=== PATIENT | female | born 1960 | race Caucasian/White ===

== ENCOUNTER 2021-03-01 11:44 | Emergency (ER) | payer OTHER, SELFPAY ==
--- NOTE | ~2021-03-01 | XR_ITS ---
EXAMINATION: XR chest 2V 03/01/2021 12:10 INDICATION: Midsternal chest pain, shortness of breath and anxiety PROCEDURE: 2 view chest COMPARISON: 08/29/2006 FINDINGS: The lungs are clear. The cardiomediastinal silhouette is within normal limits. There are no pleural effusions. There is no pneumothorax suspected. IMPRESSION: 1: NO ACUTE CARDIOPULMONARY DISEASE. Reviewed, dictated and finalized at location A.
--- NOTE | 2021-03-01 11:46 | ECG_ITS ---
Measurements Intervals [place] Rate: 115 P: 12 [place]: 152 QRS: -31 QRSD: 94 T: 12 QT: 318 QTc: 440 Interpretive Statements SINUS TACHYCARDIA LEFT AXIS DEVIATION INCOMPLETE RIGHT BUNDLE BRANCH BLOCK BORDERLINE R WAVE PROGRESSION, ANTERIOR LEADS BASELINE WANDER- I, II ABNORMAL ECG Electronically Signed On 03-01-2021 12:05:19 CDT by Andrew Young D.O.
[2021-03-01 11:55] VITALS: BP 174/103; PULSE 113; RESP 20; TEMP 36.7; O2SAT 100
[2021-03-01 12:10] LABS: Basophils Percent Auto 0.5 % (0.2-1.2); Eosinophils Absolute Auto 0.3 K/mm3 (0-0.3); Hematocrit 48.3 % (37.0-47.0); Hemoglobin 15.6 g/dL (12.0-15.0); Immature Granulocyte Absolute 0.02 K/mm3 (0.00-0.031); Immature Granulocyte Percent A 0.2 % (0-0.5); Lymphocytes Absolute Auto 2.44 K/mm3 (0.9-3.2); Lymphocytes Percent Auto 29.3 % (18.3-44.2); Mean Corpuscular HGB Conc 32.3 g/dl (32-36); Mean Corpuscular Hemoglobin 28.6 pg (26-34); Mean Corpuscular Volume 88.6 fl (80-100); Mean Platelet Volume 10.3 fl (7.4-10.4); Monocytes Absolute Auto 0.5 K/mm3 (0.1-0.6); Monocytes Percent Auto 5.8 % (2.6-8.5); Neutrophils Percent Auto 60.2 % (45.5-73.1); Platelet Count Result 355 k/mm3 (150-375); Red Blood Count 5.45 M/mm3 (4.2-5.4); Red Cell Distribution Width 12.7 % (11.5-14.5); White Blood Count 8.3 K/mm3 (4.5-10.0)
[2021-03-01 12:19] LABS: INR 0.8
[2021-03-01 12:20] LABS: Partial Thromboplastin Time 26.9 SECONDS (22.3-36.8)
[2021-03-01 12:24] LABS: Anion Gap 12 mmol/L (8-16); Blood Urea Nitrogen 16 mg/dL (7-17); Calcium 10.2 mg/dL (8.4-10.2); Carbon Dioxide 25 mmol/L (22-30); Chloride 103 mmol/L (98-107); Estimated CRCL calculation 74 ml/min; Estimated Glomerular Filt Rate > 60; Glucose 105 mg/dL (65-110); Potassium 4.6 mmol/L (3.4-5.0); Sodium 140 mmol/L (137-145)
[2021-03-01 12:36] LABS: Troponin I < 0.012 ng/mL (0.000-0.034)
--- NOTE | 2021-03-01 13:28 | ED.ANXIETY ---
HPI - Anxiety General Chief Complaint: Anxiety Stated Complaint: CP/back pain Time Seen by Provider: 03/01/21 12:59 Source: patient Mode of arrival: ambulatory Limitations: no limitations History of Present Illness HPI narrative: This is a 60 year old female that presents to the ER for worsening anxiety over the last week. Reports increased worry and anxiety. She has taken her Xanax with some relief. Reports she has intermittent chest pains that feel like a dull ache. The pain is better when she doesn't think about it. It is not exertional. She thinks maybe she is short of breath sometimes when she thinks about the possibility of having covid. Reports being in the ER currently is making her anxious. Is concerned if her tests have come back okay so far. Denies any current chest pain. Has no thoughts of harming herself or anyone else. Denies fever, or lower extremity edema. Related Data Home Medications Medication Instructions Recorded Confirmed cholecalciferol (vitamin D3) 25 1,000 unit PO DAILY 09/14/19 01/24/20 mcg (1,000 unit) capsule multivitamin 1 tablet PO DAILY 09/14/19 01/24/20 cetirizine 10 mg capsule 10 mg PO DAILY 01/24/20 01/24/20 Allergies Allergy/AdvReac Type Severity Reaction Status Date / Time ciprofloxacin Allergy Unknown Bradycardia Verified 03/01/21 12:45 nitrofurantoin Allergy Unknown Unknown Verified 03/01/21 12:45 Review of Systems Review of Systems: CONSTITUTIONAL: Denies fever CARDIOVASCULAR: Reports chest pain. Denies edema. RESPIRATORY: Reports dyspnea. All systems reviewed & are unremarkable except as noted in HPI and below PMFSH Past Medical History Medical History (Updated 03/01/21 @ 17:08 by Meme Robin PA-C) Anxiety Chicken pox Cholecystectomy planned 2007 Hypothyroidism Mumps Prediabetes Vitamin deficiency Family History Family History (Updated 09/14/19 @ 09:55 by Page Rey CMA) Mother Carcinoma of colon Circulatory disorder Social History Social History Smoking status: Never smoker Alcohol intake: never Exam Narrative: GENERAL: Well-appearing, well-nourished HEAD: Normocephalic, atraumatic. EYES: EOMI. ENT: Nares clear, no rhinorrhea or epistaxis. Mucous membranes moist. Oropharynx without tonsillar hypertrophy exudate or other lesions. Bilateral TMs pearly lara non-bulging NECK: Supple. No adenopathy or masses. CHEST: Clear to auscultation. No respiratory distress. No wheezes rales or rhonchi HEART: Regular rate and rhythm. No murmur heard. Normal peripheral pulses. EXTREMITIES: Normal range of motion. No edema. SKIN: Warm, dry, no rash. NEURO: No focal deficits. Alert and oriented x3. PSYCH: Anxious Course Consultations Consultation #1: Spoke with Dr. Alvarado about patient and workup. Will give patient prescription for a couple pills of her anxiety medication and she is to follow up in clinic for further evaluation and management. Date: 03/01/21 Time: 17:07 Vital Signs Vital signs: Vital Signs Temperature 98.1 F 03/01/21 11:55 Pulse Rate 113 H 03/01/21 11:55 Respiratory Rate 20 03/01/21 11:55 Blood Pressure 174/103 H 03/01/21 11:55 Pulse Oximetry 100 03/01/21 11:55 Temperature 98.1 F 03/01/21 11:55 Pulse Rate 83 03/01/21 14:47 Respiratory Rate 16 03/01/21 14:47 Blood Pressure 140/106 H 03/01/21 14:47 Pulse Oximetry 99 03/01/21 14:47 MDM - Anxiety MDM Narrative Medical decision making narrative: Patient presents to the emergency department for worsening anxiety over the last week. Associated with chest pain. She has no thoughts of harming herself or anyone else. She is afebrile and nontoxic-appearing. Her vitals are stable. She was tachycardic and hypertensive upon arrival, this was improved with dose of Ativan. She also had improvement in her symptoms. CBC and metabolic panel without concerning findings. EKG without acute ST changes. Baseline and 3-hour troponin are negative. Free T4
--- NOTE | 2021-03-01 13:42 | PC.NURSE ---
lab, nickie, tsh
[2021-03-01] MEDS: LORazepam INJ (*CRX) 2 MG/ML VIAL 0.5 MG IV PUSH (13:46)
[2021-03-01 14:32] LABS: Thyroid Stimulating Hormone Reflex 0.464 uIU/mL (0.465-4.68)
[2021-03-01 14:47] VITALS: BP 140/106; PULSE 83; RESP 16; O2SAT 99
[2021-03-01 15:31] LABS: Troponin I < 0.012 ng/mL (0.000-0.034)
[2021-03-01 17:06] LABS: Free T4 Free Thyroxine Reflex 1.54 ng/dL (0.78-2.19)
[2021-03-01 17:20] VITALS: BP 140/106; PULSE 82; RESP 20; O2SAT 100
[2021-03-01 18:00] LABS: Total Triiodothyronine (T3) 1.29 NG/ML (0.97-1.69)
== END 2021-03-01 17:21 | disposition home or self-care (01) ==
PROVIDERS: General Practice; Physician Assistant; Emergency Provider Emergency Medicine; PCP Internal Medicine
DX: F41.9 Anxiety disorder, unspecified (principal); R07.9 Chest pain, unspecified; E03.9 Hypothyroidism, unspecified; R73.03 Prediabetes; E56.9 Vitamin deficiency, unspecified; R00.0 Tachycardia, unspecified; I45.10 Unspecified right bundle-branch block
CPT/HCPCS: 36415; 71046; 80048; 84439; 84443; 84480; 84484; 85025; 85610; 85730; 93005; 96374; 99284; J2060

== ENCOUNTER 2021-12-20 19:25 | Emergency (ER) | payer OTHER, SELFPAY ==
--- NOTE | 2021-12-20 19:32 | ED.FEMALEGU ---
HPI - Female Genitourinary General Chief complaint: Urogenital-Female Stated complaint: UTI Time Seen by Provider: 12/20/21 19:32 Source: patient Mode of arrival: ambulatory Limitations: no limitations History of Present Illness HPI Narrative: 61-year-old female presents with complaint of urinary urgency for 2 to 3 weeks. Reports over the past several days she noticed low back pain. States that urinary urgency started after a road trip with her daughter. Had to hold her bladder for long period of time. Denies fever chills. No abdominal pain. No nausea vomiting diarrhea. Patient also reports mild nasal congestion, sinus pressure right ear pain that started today. States that this is weather related. Does take Zyrtec daily. No cough or shortness of breath. All systems reviewed and negative except as noted above. Related Data Home Medications Medication Instructions Recorded Confirmed cholecalciferol (vitamin D3) 25 1,000 unit PO DAILY 09/14/19 12/20/21 mcg (1,000 unit) capsule multivitamin 1 tablet PO DAILY 09/14/19 12/20/21 cetirizine 10 mg capsule 10 mg PO DAILY 01/24/20 12/20/21 Allergies Allergy/AdvReac Type Severity Reaction Status Date / Time ciprofloxacin Allergy Unknown Bradycardia Verified 12/20/21 19:42 nitrofurantoin Allergy Unknown Unknown Verified 12/20/21 19:42 Review of Systems Review of Systems: CONSTITUTIONAL: Denies fever, chills, or sweats. EYES: Denies visual changes, redness, or discharge. ENT: Reports rhinorrhea, congestion. Denies sore throat, or otalgia. CARDIOVASCULAR: Denies chest pain, palpitations, or edema. RESPIRATORY: Denies cough or dyspnea. GASTROINTESTINAL: Denies abdominal pain, nausea, vomiting, or diarrhea. GENITOURINARY: Denies dysuria or hematuria. Reports urgency. SKIN: Denies rash or itching. MUSCULOSKELETAL: Denies back pain, joint pain, or myalgia. NEUROLOGIC: Denies headache, numbness, or weakness. PSYCHIATRIC: Denies anxiety or depression. All other systems reviewed are negative, except as documented in HPI. [facility] Past Medical History Medical History Anxiety Chicken pox Cholecystectomy planned 2007 Hypothyroidism Mumps Prediabetes Vitamin deficiency Family History Family History Mother Carcinoma of colon Circulatory disorder Social History Social History Smoking status: Never smoker Alcohol intake: never Comments At time of signature, agree with nursing past medical, surgical, social and family history. There is no relevant family history pertinent to the presenting complaint. Exam Narrative: GENERAL: This is a well-nourished, well-developed patient, in no apparent distress. HEAD: normocephalic, atraumatic. EYES: PERRL. Sclera clear/white. Vision is grossly intact. EARS: External ears normal, auditory canals clear and without drainage, TMs normal without perforation. Hearing grossly intact. NOSE: External nose normal, clear nasal drainage. No erythema or swelling to nares. No sinus tenderness. THROAT: Mucous membranes moist, posterior pharynx clear. NECK: Neck supple, non-tender without lymphadenopathy, masses or thyromegaly. CARDIOVASCULAR: Regular rate and rhythm without murmurs, gallops, or rubs. RESPIRATORY: Clear to auscultation. Breath sounds equal bilaterally. No wheezes, rales, or rhonchi. SKIN: warm, Dry, intact with no suspicious lesions or rash, good texture and turgor. NEURO: awake, alert, and oriented to person, place and time. There were no obvious focal neurologic abnormalities. EXTREMITIES: Normal range of motion to all extremities. BACK: No CVA tenderness. Course Course Level of Care: Express Care Visit Vital Signs Vital signs: Vital Signs Temperature 37.1 C 12/20/21 19:33 Pulse Rate 104 H 12/20/21 19:33 Respiratory Rate 18 12/20/21 19:33 B
[2021-12-20 19:33] VITALS: BP 154/82; PULSE 104; RESP 18; TEMP 37.1; O2SAT 100
== END 2021-12-20 19:50 | disposition home or self-care (01) ==
PROVIDERS: Emergency Provider Nurse Practitioner Family; PCP Internal Medicine
DX: N39.0 Urinary tract infection, site not specified (principal); J30.2 Other seasonal allergic rhinitis; E03.9 Hypothyroidism, unspecified; R73.03 Prediabetes
CPT/HCPCS: 81003; 87086; 87088; 99213; G0463

== ENCOUNTER 2021-12-23 08:42 | Emergency (ER) | payer OTHER, SELFPAY ==
[2021-12-23 08:49] VITALS: BP 154/113; PULSE 93; RESP 16; TEMP 36.8; O2SAT 99
--- NOTE | 2021-12-23 09:21 | ED.URI ---
HPI - URI/Sore Throat General Chief Complaint: Upper Respiratory Infection Stated Complaint: sore throat/ear pain Time Seen by Provider: 12/23/21 09:21 Source: patient, family, RN notes reviewed and old records reviewed Mode of arrival: ambulatory Limitations: no limitations History of Present Illness HPI Narrative: 61-year-old female presents to the [facility] with complaints of scratchy throat right ear burning, left ear uncomfortable, nasal drainage for 3 days. Patient states that she has tried taking Zyrtec, ibuprofen and Flonase with minimal relief MD elicited complaint: sore throat Related Data Home Medications Medication Instructions Recorded Confirmed cholecalciferol (vitamin D3) 25 1,000 unit PO DAILY 09/14/19 12/23/21 mcg (1,000 unit) capsule multivitamin 1 tablet PO DAILY 09/14/19 12/23/21 cetirizine 10 mg capsule 10 mg PO DAILY 01/24/20 12/23/21 Allergies Allergy/AdvReac Type Severity Reaction Status Date / Time ciprofloxacin Allergy Unknown Bradycardia Verified 12/23/21 09:35 nitrofurantoin Allergy Unknown Unknown Verified 12/23/21 09:35 Review of Systems Review of Systems: All systems reviewed & are unremarkable except as noted in HPI and below Constitutional: Constitutional: Reports no additional constitutional complaints, Denies chills, Denies fever(s) and Denies headache(s) Eyes: Eyes: Reports no additional eye complaints ENT: Reports as per HPI, Denies vertigo, Denies dizziness, Denies headache(s), Reports nasal congestion and Reports sore throat Comments: Burning ears bilateral, nasal drainage postnasal drip Cardiovascular: Cardiovascular: Reports no additional cardiovascular complaints, Denies chest pain, Denies syncope, Denies rapid heart rate and Denies dyspnea Respiratory: Respiratory: Reports no additional respiratory complaints, Denies cough, Denies dyspnea and Denies wheezing Gastrointestinal: Gastrointestinal: Reports no additional gastrointestinal complaints, Denies abdominal pain, Denies diarrhea, Denies nausea and Denies vomiting Musculoskeletal: Musculoskeletal: Reports no additional musculoskeletal complaints and Denies numbness Integumentary/Breasts: Skin/Breast: Reports system reviewed and no additional complaints, except as docu Neurologic: Reports system reviewed and no additional complaints, except as documented, Denies vertigo, Denies dizziness, Denies syncope, Denies headache(s), Denies focal weakness and Denies numbness Psychiatric: Psychiatric: Reports no additional psychiatric complaints Allergic/Immunologic: Allergic/Immunologic: Reports no additional allergic/immunologic complaints and Denies wheezing PMFSH Past Medical History Medical History Anxiety Chicken pox Cholecystectomy planned 2007 Hypothyroidism Mumps Prediabetes Vitamin deficiency Family History Family History Mother Carcinoma of colon Circulatory disorder Social History Social History Smoking status: Never smoker Alcohol intake: never Comments At the time of my signature, I reviewed and agree with the nursing past medical, surgical, social, and family history. There is no relevant family history pertinent to the patient complaint. Exam Const: General: cooperative, healthy appearing, no acute distress, well developed and alert Nutritional Appearance: well nourished and obese Orientation/consciousness: patient oriented x3 Limitations: no limitations HENMT: Head: normal to inspection Ears: external ears normal, EAC's normal and TM abnormal with fluid behind the TM bilateral; not erythematous and with no loss of landmarks Mouth: Yes lip normal Throat: uvula midline, posterior oropharynx abnormal cobblestoning; no erythema and no exudates, postnasal drainage and no uvular edema Eyes: Conjunctivae: conjunctivae normal Pupils:
== END 2021-12-23 09:40 | disposition home or self-care (01) ==
PROVIDERS: Emergency Provider Nurse Practitioner; PCP Internal Medicine
DX: H69.93 Unspecified Eustachian tube disorder, bilateral (principal); J30.9 Allergic rhinitis, unspecified; R09.82 Postnasal drip; E03.9 Hypothyroidism, unspecified; R73.03 Prediabetes
CPT/HCPCS: 99211; G0463

== ENCOUNTER 2021-12-27 18:44 | Emergency (ER) | payer OTHER, SELFPAY ==
--- NOTE | ~2021-12-27 | XR_ITS ---
XR abdomen/kub 1V 12/27/2021 19:29 INDICATION: Intermittent abdomen pain TECHNIQUE: KUB COMPARISON: None FINDINGS: Bowel gas pattern is normal. There are cholecystectomy clips. There is no evidence of free air, mass, organomegaly, ascites or obstruction. No abnormal calculi are seen. The bones appear int act. Moderate lumbar spondylosis with levocurvature of the lumbar spine. IMPRESSION: 1: No acute abdominal abnormality identified. Reviewed, dictated and finalized at location A.
[2021-12-27 18:52] VITALS: BP 142/88; PULSE 102; RESP 18; TEMP 36.9; O2SAT 99
--- NOTE | 2021-12-27 19:06 | ED.FEMALEGU ---
HPI - Female Genitourinary General Chief complaint: Urogenital-Female Stated complaint: uti Time Seen by Provider: 12/27/21 19:06 Source: patient and RN notes reviewed Mode of arrival: ambulatory Limitations: no limitations History of Present Illness HPI Narrative: 61-year-old female presented for complaint of urinary frequency and occasional left flank pain. She has been drinking more water than usual. She states she was diagnosed and treated for UTI few weeks ago, she completed the course of the antibiotics but she is concerned the UTI has returned. She is leaving for vacation and wants to make sure that she has a UTI. Denies nausea, vomiting, diarrhea, hematuria, constipation, fevers or chills. Related Data Home Medications Medication Instructions Recorded Confirmed cholecalciferol (vitamin D3) 25 1,000 unit PO DAILY 09/14/19 12/23/21 mcg (1,000 unit) capsule multivitamin 1 tablet PO DAILY 09/14/19 12/23/21 cetirizine 10 mg capsule (Zyrtec) 10 mg PO DAILY 01/24/20 12/23/21 Allergies Allergy/AdvReac Type Severity Reaction Status Date / Time ciprofloxacin Allergy Unknown Bradycardia Verified 12/23/21 09:35 nitrofurantoin Allergy Unknown Unknown Verified 12/23/21 09:35 Review of Systems Review of Systems: CONSTITUTIONAL: Denies body aches, fever, chills, or sweats. CARDIOVASCULAR: Denies chest pain, palpitations, or edema. RESPIRATORY: Denies cough or dyspnea. GASTROINTESTINAL: Denies abdominal pain, nausea, vomiting, or diarrhea. GENITOURINARY: Reports frequency SKIN: Denies rash, itching, or wounds. MUSCULOSKELETAL: Denies back pain or myalgia. [facility] Past Medical History Medical History Anxiety Chicken pox Cholecystectomy planned 2007 Hypothyroidism Mumps Prediabetes Vitamin deficiency Family History Family History Mother Carcinoma of colon Circulatory disorder Social History Social History Smoking status: Never smoker Alcohol intake: never Comments At time of signature, I have reviewed and agree with nursing past medical, surgical, social and family history unless otherwise noted. Please see nursing chart for further information. There is no relevant family history pertinent to the presenting complaint Exam Narrative: GENERAL: Well-appearing HEAD: Normocephalic EYES: EOMI. . ENT: Mucous membranes pink and moist. NECK: Normal AROM. Supple. CHEST: No respiratory distress. Clear to auscultation. HEART: Regular rate and rhythm. ABDOMEN: Soft, nontender, nondistended, normal active bowel sounds. No CVA tenderness MUSCULOSKELETAL: No bony tenderness. SKIN: Warm, dry, no rash. NEURO: No focal deficits. Alert and oriented x3. Gait steady. PSYCH: Normal affect. Anxious Course Course Emergency Course: Patient is aware of diagnosis, understands and agrees to treatment plan. Anticipatory guidance given. Patient agrees to follow-up as directed and is aware of reasons to seek care at the emergency department. Portions of this record may have been created with voice recognition software Level of Care: Express Care Visit Vital Signs Vital signs: Vital Signs Temperature 98.4 F 12/27/21 18:52 Pulse Rate 102 H 12/27/21 18:52 Respiratory Rate 18 12/27/21 18:52 Blood Pressure 142/88 H 12/27/21 18:52 Pulse Oximetry 99 12/27/21 18:52 Oxygen Delivery Room Air 12/27/21 18:52 Temperature 98.4 F 12/27/21 18:52 Pulse Rate 102 H 12/27/21 18:52 Respiratory Rate 18 12/27/21 18:52 Blood Pressure 142/88 H 12/27/21 18:52 Pulse Oximetry 99 12/27/21 18:52 Oxygen Delivery Room Air 12/27/21 18:52 Reviewed MDM - Female Genitourinary MDM Narrative Medical decision making narrative: Urine result reviewed with patient, trace blood. Patient became diaphoretic and anxious when told
== END 2021-12-27 19:42 | disposition home or self-care (01) ==
PROVIDERS: Emergency Provider Nurse Practitioner Family; PCP Internal Medicine
DX: R35.0 Frequency of micturition (principal); R31.29 Other microscopic hematuria; E03.9 Hypothyroidism, unspecified; R73.03 Prediabetes; E55.9 Vitamin D deficiency, unspecified
CPT/HCPCS: 74018; 81003; 99213; G0463

== ENCOUNTER 2022-04-09 15:11 | Outpatient (CLI) | payer OTHER, SELFPAY ==
[2022-04-09 20:33] LABS: Anion Gap 10 mmol/L (8-16); Blood Urea Nitrogen 14 mg/dL (7-17); Carbon Dioxide 29 mmol/L (22-30); Chloride 102 mmol/L (98-107); Estimated Glomerular Filt Rate > 60; Glucose 113 mg/dL (65-110); Magnesium 2.3 mg/dL (1.6-2.3); Potassium 5.1 mmol/L (3.4-5.0); Sodium 141 mmol/L (137-145)
== END 2022-04-09 15:12 | disposition home or self-care (01) ==
PROVIDERS: PCP Internal Medicine; Visit Provider Clinical Nurse Specialist
DX: E87.5 Hyperkalemia (principal)
CPT/HCPCS: 36415; 80048; 83735

== ENCOUNTER 2024-09-08 00:29 | Day surgery (SDC) | payer OTHER, SELFPAY ==
[2024-08-25 09:08] VITALS: BMI 31.1
--- OUTSIDE RECORDS SUMMARY | 2024-09-08 00:31 | XMS_ITS | Patient Health Summary ---
Author Organization [facility] Address [address] [place] [address] Care Team Providers Care Pier Master Assistant Name Role Phone Flo Alvarado DO Primary Care Provider Note from [facility],non-owned Affiliates and Associated Physician Practices is amultiple site organization consisting of ambulatory clinics and hospital sitesin [place], [place], [place] and [place]. This disclosure is being madepursuant to the Care Everywhere program and may not contain all information available regarding this patient. Last updated 18.[facility] Allergies * Ciprofloxacin(Other) Medications * Be aware that medications may not be up to date on this document. Alwaysverify current medications with the patient. * levothyroxine (SYNTHROID) 150 MCG tablet Take 150 mcg by mouth daily before breakfast * VITAMIN D, ERGOCALCIFEROL, PO * Cetirizine HCl (ZYRTEC ALLERGY PO) * fluticasone propionate (FLONASE ALLERGY RELIEF) 50 MCG/ACT nasal spray(Started 12/17/2017) [place] 2 sprays into each nostril once daily Reasons: Allergic Rhinitis * ALPRAZolam (XANAX) 0.25 MG tablet alprazolam 0.25 mg tablet TAKE 1 TABLET BY MOUTH THREE TIMES A DAY NEEDED FOR ANXIETY * albuterol HFA (PROVENTIL; VENTOLIN; PROAIR) 108 (90 Base) MCG/ACT inhaler (Started 07/11/2021) [place] 2 (two) puffs by mouth every 6 hours as needed for Wheezing or Cough Active Problems Problem Noted Date Diagnosed Date Rupture of peroneal tendon 09/14/2018 Seasonal allergies 09/01/2018 Soft tissue lesion of foot 09/01/2018 Wears glasses 09/01/2018 Social History Tobacco Use Types Packs/Day Years Used Date Smoking Tobacco: Never Smokeless Tobacco: Never Tobacco Cessation:Counseling Given: No Sex and Gender Information Value Date Recorded Sex Assigned at Not on file Gender Identity Not on file Sexual Orientation Not on file Last Filed Vital Signs Vital Sign Reading Time Taken Comments Blood Pressure 150/80 07/11/2021 9:34 AM RECORDING STUDIO SETUP WORKER Pulse 100 07/11/2021 9:34 AM RECORDING STUDIO SETUP WORKER Temperature 37 ??C (98.6 ??F) 07/11/2021 9:34 AM RECORDING STUDIO SETUP WORKER Respiratory Rate 18 07/11/2021 9:34 AM RECORDING STUDIO SETUP WORKER Oxygen Saturation 97% 07/11/2021 9:34 AM RECORDING STUDIO SETUP WORKER Inhaled Oxygen Concentration - - Weight 90.7 kg (200 lb) 07/11/2021 9:34 AM RECORDING STUDIO SETUP WORKER Height 165.1 cm (5' 5 ) 07/11/2021 9:34 AM RECORDING STUDIO SETUP WORKER Body Mass Index 33.28 07/11/2021 9:34 AM RECORDING STUDIO SETUP WORKER Care Teams Pier Master Assistant Relationship Specialty Start Date End Date Flo Alvarado DO PCP - General Internal Medicine 12/17/17
--- OUTSIDE RECORDS SUMMARY | 2024-09-08 00:31 | XMS_ITS | Clinical Summary ---
Author Organization [facility] Address [address] [address] Care Team Providers Care Prospecting Driller Helper Name Role Phone Flo Alvarado DO Primary Care Provider Source Comments [facility],non-owned Affiliates and Associated Physician Practices is amultiple site organization consisting of ambulatory clinics and hospital sitesin [place], [place], [place] and [place]. This disclosure is being madepursuant to the Care Everywhere program and may not contain all information available regarding this patient. Last updated 18.[facility] Allergies Active Allergy Reactions Criticality Noted Date Comments Ciprofloxacin Other 12/17/2017 Anxious Medications * Be aware that medications may not be up to date on this document. Alwaysverify current medications with the patient. Medication Sig Dispensed Refills Start Date End Date Status levothyroxine (SYNTHROID) 150 MCG tablet Take 150 mcg by mouth daily before breakfast Active VITAMIN D, ERGOCALCIFEROL, PO Active Cetirizine HCl (ZYRTEC ALLERGY PO) Activ e fluticasone propionate (FLONASE ALLERGY RELIEF) 50 MCG/ACT nasal sprayIndications:Al lergic Rhinitis [place] 2 sprays into each nostril once daily Reasons: Allergic Rhinitis 1 bottles 12/17/2017 Active ALPRAZolam (XANAX) 0.25 MG tablet alprazolam 0.25 mg tablet TAKE 1 TABLET BY MOUTH THREE TIMES A DAY NEEDED FOR ANXIETY Active albuterol HFA (PROVENTIL; VENTOLIN; PROAIR) 108 (90 Base) MCG/ACT inhaler Inhale 2 (two) puffs by mouth every 6 hours as needed for Wheezing or Cough 1 g 07/11/2021 Active Active Problems Problem Noted Date Diagnosed Date [...] Comments Blood Pressure 150/80 07/11/2021 9:34 AM NURSE ANESTHESIA PROGRAM DIRECTOR Pulse 100 07/11/2021 9:34 AM NURSE ANESTHESIA PROGRAM DIRECTOR Temperature 37 ??C (98.6 ??F) 07/11/2021 9:34 AM NURSE ANESTHESIA PROGRAM DIRECTOR Respiratory Rate 18 07/11/2021 9:34 AM NURSE ANESTHESIA PROGRAM DIRECTOR Oxygen Saturation 97% 07/11/2021 9:34 AM NURSE ANESTHESIA PROGRAM DIRECTOR Inhaled Oxygen Concentration - - Weight 90.7 kg (200 lb) 07/11/2021 9:34 AM NURSE ANESTHESIA PROGRAM DIRECTOR Height 165.1 cm (5' 5 ) 07/11/2021 9:34 AM NURSE ANESTHESIA PROGRAM DIRECTOR Body Mass Index 33.28 07/11/2021 9:34 AM NURSE ANESTHESIA PROGRAM DIRECTOR Plan of Treatment Health Maintenance Due Date Last Done Comments COLOGUARD (AGES 45-75) - COL ON CA SCREENING 1960 COLON MONITORING 1960 COLONOSCOPY - COLON CA SCREENING 1960 CT COLONOGRAPHY - COLON CA SCREENING 1960 Colorectal Cancer Screening 1960 FIT - COLON CA SCREENING 1960 FLEX SIG - COLON CA SCREENING 1960 LIPID TESTING 1960 MAMMOGRAM 1960 PAP SMEAR 1960 HIV SCREENING 1975 HEPATITIS C SCREENING 03/14/1978 DTAP/TDAP/TD VACCINES (1 - Tdap) 1979 PNEUMOCOCCAL VACCINE 50+ (1 of 1 - PCV) 2010 ZOSTER VACCINE (1 of 2) 2010 SCREENING FOR DIABETES 07/11/2021 COVID-19 VACCINE (1 - 2023-2 5 season) 2024 INFLUENZA VACCINE (#1) 2024 , 05/08/2020 DEPRESSION SCREENING 08/04/2024 Respiratory Syncytial Virus (RSV) Vaccine Pt: or over 60 yrs (1 - 1-dose 75+ series) 2035 HEPATITIS B VACCINE Aged Out No longe r eligible based on patient's age to complete this topic HIB VACCINE Aged Out No longer eligi ble based on patient's age to complete this topic HPV VACCINE Aged Out No longer eligi ble based on patient's age to complete this topic MENINGOCOCCAL (Group B) VACCINE Aged Out No longer eligible b ased on patient's age to complete this topic MENINGOCOCCAL VACCINE Aged Out No robson wilbert eligible based on patient's age to complete this topic PNEUMOCOCCAL VACCINE Aged Out No long er eligible based on patient's age to complete this topic Care Teams Prospecting Driller Helper Relationship Specialty Start Date End Date Flo Alvarado DO PCP - General Internal Medicine 12/17/17
--- OUTSIDE RECORDS SUMMARY | 2024-09-08 00:31 | XMS_ITS | Referral Summary ---
Author Organization [facility] Address [address] [place] [address] Care Team Providers Care Avionics Test Technician Name Role Phone Flo Alvarado DO Primary Care Provider Source Comments [facility],non-owned Affiliates and Associated Physician Practices is amultiple site organization consisting of ambulatory clinics and hospital sitesin [place], [place], [place] and [place]. This disclosure is being madepursuant to the Care Everywhere program and may not contain all information available regarding this patient. Last updated 18.[facility] Allergies Active Allergy Reactions Criticality Noted Date [...] RELIEF) 50 MCG/ACT nasal sprayIndications:Al lergic Rhinitis [place] 2 sprays into each nostril once daily [...] Comments Blood Pressure 150/80 07/11/2021 9:34 AM COMMUNICATION CLERK Pulse 100 07/11/2021 9:34 AM COMMUNICATION CLERK Temperature 37 ??C (98.6 ??F) 07/11/2021 9:34 AM COMMUNICATION CLERK Respiratory Rate 18 07/11/2021 9:34 AM COMMUNICATION CLERK Oxygen Saturation 97% 07/11/2021 9:34 AM COMMUNICATION CLERK Inhaled Oxygen Concentration - - Weight 90.7 kg (200 lb) 07/11/2021 9:34 AM COMMUNICATION CLERK Height 165.1 cm (5' 5 ) 07/11/2021 9:34 AM COMMUNICATION CLERK Body Mass Index 33.28 07/11/2021 9:34 AM COMMUNICATION CLERK Plan of Treatment Not on file Care Teams Avionics Test Technician Relationship Specialty Start Date End Date Flo Alvarado DO PCP - General Internal Medicine 12/17/17
[2024-09-08 09:51] VITALS: BP 159/101; PULSE 115; RESP 20; TEMP 36.2; O2SAT 99
[2024-09-08] MEDS: LACTATED RINGERS 1,000 ML 150 ML IV CONT (10:02)
--- NOTE | 2024-09-08 10:04 | PM.IMHP ---
H&P: HPI History of Present Illness Date/Time: 09/08/24 10:04 Chief Complaint: Family history of colorectal cancer Narrative: This patient has family history of colorectal cancer. her mother had colorectal cancer in her late 50s. Her last colonoscopy was in 2019, no polyps found. Review of Systems Review of Systems: All systems reviewed & are unremarkable except as noted in HPI and below PMFSH Past Medical History Medical History Anxiety Chicken pox Cholecystectomy planned 2007 Hypothyroidism Mumps Prediabetes Screening mammogram, encounter for Vitamin deficiency Surgical History Surgical History H/O LEEP (~2007) History of colposcopy (~2003) Family History Family History Mother Carcinoma of colon Circulatory disorder Social History Social History (Updated 05/10/24 @ 07:59 by ROSANA Lord) Smoking status: Never smoker Second hand tobacco smoke exposure: No Alcohol intake: never Substance use: never Substance use type: does not use Do You Feel Safe in your Home?: Yes Lack of Transportation: No Lack of Food: Never True Current Housing: I Have Housing Concerned About Future Housing: No Difficulty Paying Gas/Electric Bills: No Difficulty Paying for Meds: No Currently Unemployed: No Education: Bachelor's Degree Difficulty w/ Childcare or Family Care: No Living arrangements: with family Additional living arrangements comments: With sp Occupation/Education: retired Additional occupation/education comments: teacher Gender identity (if verbalized by the patient): Female Sexual Orientation (if Verbalized by the Patient): Straight or Heterosexual Meds Home Medications and Allergies Home Medications ?Medication ?Instructions ?Recorded ?Confirmed ?Type cholecalciferol (vitamin D3) 25 1,000 unit PO DAILY 09/14/19 09/08/24 History mcg (1,000 unit) capsule multivitamin 1 tablet PO DAILY 09/14/19 09/08/24 History Synthroid 137 mcg tablet See Rx Instructions .Route 04/08/24 09/08/24 Rx (levothyroxine) .COMPLEX #90 tabs cetirizine 10 mg capsule (Zyrtec) 10 mg PO DAILY PRN allergy symptoms 05/10/24 08/25/24 History alprazolam 0.25 mg tablet (Xanax) 0.25 mg PO DAILY PRN anxiety #30 06/28/24 09/08/24 Rx tabs Allergies Allergy/AdvReac Type Severity Reaction Status Date / Time ciprofloxacin Allergy Unknown Bradycardia Verified 09/08/24 09:49 nitrofurantoin Allergy Unknown Unknown Verified 09/08/24 09:49 Vital Signs Vital Signs - 24 hr 09/08/24 09:51 Temperature 97.1 F L Pulse Rate 115 H Respiratory Rate 20 Blood Pressure 159/101 H Pulse Oximetry 99 Oxygen Delivery Room Air Exam Const: General: cooperative and healthy appearing Resp: Effort & Inspection: normal respiratory effort and able to speak in complete sentences Auscultation: clear to auscultation bilaterally Cardio: Rate: regular rate Rhythm: regular rhythm GI: Inspection: normal to inspection GI Palp: No No hepatosplenomegaly present Auscultation: normal bowel sounds Rectal Exam: deferred Skin: General skin exam: normal color Psych: Appearance: grossly normal Mental Status: mental status grossly normal Assessment and Plan Assessment and plan (1) Family history of colon cancer: Code(s): Z80.0 - Family history of malignant neoplasm of digestive organs Status: Acute Assessment and Plan: The patient is deemed a good candidate for the procedure. Consent signed. Will proceed.
--- NOTE | 2024-09-08 10:15 | WPDANESEPPF ---
Anes - Initial Pre Proc Eval Procedure: Operation Date: 09/08/24 10:30 Proposed Procedures p Colonoscopy - Bautista Mckeon MD Date/Time: 09/08/24 10:15 Surgeon: Bautista Mckeon MD Pre Op Diagnosis: family hx of neoplasm Patient Data Age: 64 Gender: F Height: 1.7 m Weight: 87.8 kg Last Vital Signs Temp 36.2 C L 09/08/24 09:51 Pulse 115 H 09/08/24 09:51 Resp 20 09/08/24 09:51 BP 159/101 H 09/08/24 09:51 Pulse Ox 99 09/08/24 09:51 O2 Del Method Room Air 09/08/24 09:51 Allergies Allergy/AdvReac Type Severity Reaction Status Date / Time ciprofloxacin Allergy Unknown Bradycardia Verified 09/08/24 09:49 nitrofurantoin Allergy Unknown Unknown Verified 09/08/24 09:49 Home Medications ?Medication ?Instructions ?Recorded ?Confirmed ?Type cholecalciferol (vitamin D3) 25 1,000 unit PO DAILY 09/14/19 09/08/24 History mcg (1,000 unit) capsule multivitamin 1 tablet PO DAILY 09/14/19 09/08/24 History Synthroid 137 mcg tablet See Rx Instructions .Route 04/08/24 09/08/24 Rx (levothyroxine) .COMPLEX #90 tabs cetirizine 10 mg capsule (Zyrtec) 10 mg PO DAILY PRN allergy symptoms 05/10/24 08/25/24 History alprazolam 0.25 mg tablet (Xanax) 0.25 mg PO DAILY PRN anxiety #30 06/28/24 09/08/24 Rx tabs Patient hx anesthesia problems: none Family hx anesthesia problems: none Results Review: All pre-operative results and documents have been reviewed as part of the pre-operative evaluation. [facility] Past Medical History Medical History Screening mammogram, encounter for Cholecystectomy planned 2007 Mumps Chicken pox Vitamin deficiency Hypothyroidism Prediabetes Anxiety Surgical History Surgical History H/O LEEP (~2007) History of colposcopy (~2003) Family History Family History Mother Carcinoma of colon Circulatory disorder Social History Social History Smoking status: Never smoker Second hand tobacco smoke exposure: No Alcohol intake: never Substance use: never Substance use type: does not use Do You Feel Safe in your Home?: Yes Lack of Transportation: No Lack of Food: Never True Current Housing: I Have Housing Concerned About Future Housing: No Difficulty Paying Gas/Electric Bills: No Difficulty Paying for Meds: No Currently Unemployed: No Education: Bachelor's Degree Difficulty w/ Childcare or Family Care: No Living arrangements: with family Additional living arrangements comments: With sp Occupation/Education: retired Additional occupation/education comments: teacher Gender identity (if verbalized by the patient): Female Sexual Orientation (if Verbalized by the Patient): Straight or Heterosexual Anes - Eval Final PreProcedure Day of Procedure 09/08/24 10:15 Patient weight: obese Heart: regular rate and rhythm Lungs: clear to auscultation Airway: Mallampati scale class II Neurological: alert and oriented Last oral intake: >/= 8 hours ASA classification: II Emergent: no Anesthetic plan: proceed Anesthesia type and monitoring: general GIVS and standard monitoring Results Review: All pre-operative results and documents have been reviewed as part of the pre-operative evaluation. Informed Consent: The patient's anesthetic plan and its attendant risks and benefits were discussed with the patient/family/POA. Questions were solicited and answers provided to the satisfaction of the patient/family/POA.
[2024-09-08 10:45] VITALS: BP 105/68; PULSE 89; RESP 28; O2SAT 95
[2024-09-08 10:55] VITALS: BP 104/61; PULSE 87; RESP 95; O2SAT 95
== END 2024-09-08 11:25 | disposition home or self-care (01) ==
PROVIDERS: PCP Internal Medicine; Referring Provider Clinical Nurse Specialist; Visit Provider Internal Medicine Gastroenterology
PROC: 0DJD8ZZ Inspection of Lower Intestinal Tract, Via Natural or Artificial Opening Endoscopic (ICD-10-PCS; CPT 45378; principal; 2024-09-08 10:30)
DX: Z12.11 Encounter for screening for malignant neoplasm of colon (principal); K57.30 Diverticulosis of large intestine without perforation or abscess without bleeding; K64.8 Other hemorrhoids; Z80.0 Family history of malignant neoplasm of digestive organs; E66.9 Obesity, unspecified; Z68.30 Body mass index [BMI] 30.0-30.9, adult
CPT/HCPCS: 45378; J2003; J2704; J7120